=== PATIENT | female | born 1955 | race Caucasian/White ===

== ENCOUNTER → 2017-11-14 | Outpatient (CLI) | payer BC ==
[~2017-11-14] MED LIST: AMOX1TAB61 PO; CARB200T4 PO; DOCU-131 PO; LOVA20TA2 PO; OXYC-302 PO; RISP3TAB3 PO; RISP4TAB2 PO; VALS40TA2 PO; ZOLP10TA5 PO
[2017-11-14 12:43] LABS: ALANINE AMINOTRANSFERASE 37 U/L (12-78); ANION GAP 8 mmol/L (5-15); CALCIUM 8.6 mg/dL (8.5-10.1); CHLORIDE 103 mmol/L (98-107)
[2017-11-14 12:45] LABS: ALKALINE PHOSPHATASE 122 U/L (45-117); BILIRUBIN,TOTAL 0.4 mg/dL (0.2-1.0); CREATININE 0.71 mg/dL (0.55-1.02); TOTAL PROTEIN 7.7 g/dL (6.4-8.2)
== END ==
LOC: STAR 10:28
PROVIDERS: ATTEND Surgery
DX: Z01.818 Encounter for other preprocedural examination (principal)
CPT/HCPCS: 36415; 80053; 93005

== ENCOUNTER 2017-11-21 09:22 | Observation (INO) | payer BC ==
[~2017-11-21] VITALS: Ht 154.9 cm; Wt 99.0 kg
[~2017-11-21 09:22] MED LIST changes: +SUGAMMADEX 200 MG/2 ML IVPush ONE
[2017-11-21 09:53] VITALS: BP 147/96
[2017-11-21] MEDS ORDERED: LACTATED RINGERS 1,000 ML IV SCH (09:56)
[2017-11-21] MEDS ORDERED: FENTANYL PF 100 MCG/2ML ONE ×4 (13:21→16:28)
[2017-11-21] MEDS ORDERED: MIDAZOLAM 1 MG/ML, 2ML ONE (13:21)
[2017-11-21] MEDS ORDERED: BUPIVACAINE/PF 0.5% ONE ×2 (13:22→14:11)
[2017-11-21] MEDS ORDERED: BACITRACIN 50,000 UNIT ONE (13:22)
[2017-11-21] MEDS ORDERED: PROPOFOL 10 MG/ML, 20ML ONE (13:24)
[2017-11-21] MEDS ORDERED: ONDANSETRON 2MG/ML, 2ML ONE (13:24)
[2017-11-21] MEDS ORDERED: GLYCOPYRROLATE 0.2MG/1ML, 5ML ONE (13:24)
[2017-11-21] MEDS ORDERED: SUCCINYLCHOLINE 20 MG/ML, 10ML ONE (13:24)
[2017-11-21] MEDS ORDERED: CEFAZOLIN 1,000 MG ONE (13:24)
[2017-11-21] MEDS ORDERED: DEXAMETHASONE 4 MG/ML, 1ML ONE (13:24)
[2017-11-21] MEDS ORDERED: NEOSTIGMINE 1 MG/ML, 10ML ONE (13:24)
[2017-11-21] MEDS ORDERED: PHENYLEPHRINE 10 MG/ML ONE (13:36)
[2017-11-21] MEDS ORDERED: morphine SULFATE 10 MG/ML, 1ML IV PRN (14:00)
[2017-11-21] MEDS ORDERED: MIDAZOLAM 1 MG/ML, 2ML IV PRN (14:00)
[2017-11-21] MEDS ORDERED: ACETAMINOPHEN 325 MG TABLET PO PRN (14:00)
[2017-11-21] MEDS ORDERED: EPINEPHRINE 1 MG/ML, 1ML ONE (14:11)
[2017-11-21] MEDS ORDERED: BACITRACIN 50,000 UNIT IM ONE (14:50)
[2017-11-21] MEDS: FENTANYL PF 100 MCG/2ML IV PRN ×4 (15:55→16:55)
[2017-11-21] MEDS ORDERED: HYDROmorphone 1 MG/ML, 1ML ONE (16:10)
[2017-11-21] MEDS: HYDROmorphone 1 MG/ML, 1ML IV PRN ×2 (16:15→16:20)
[2017-11-21] MEDS ORDERED: ACETAMINOPHEN 650 MG/20.3 ML UDC ONE (16:28)
[2017-11-21] MEDS ORDERED: OXYcodone 5 MG/5 ML ORAL.SOL UDC ONE (16:28)
[2017-11-21] MEDS ORDERED: OXYcodone 5 MG/5 ML ORAL.SOL UDC PO PRN (17:00)
[2017-11-21] MEDS ORDERED: HYDROmorphone 2 MG/ML, 1ML IV PRN (18:30)
[2017-11-21] MEDS ORDERED: ZOLPIDEM 10MG TABLET PO PRN (18:30)
[2017-11-21] MEDS ORDERED: DIPHENHYDRAMINE 50 MG/ML, 1ML IVPush PRN (18:30)
[2017-11-21] MEDS ORDERED: RISPERIDONE 2 MG TABLET ONE (20:39)
[2017-11-21] MEDS ORDERED: RISPERIDONE 0.5 MG TABLET ONE (20:40)
[2017-11-21] MEDS: IBUPROFEN 600 MG TABLET PO SCH (20:43)
[2017-11-21] MEDS: CEFAZOLIN PMX 1GM/50ML 50 ML IV SCH (20:43)
[2017-11-21] MEDS: OXYcodone/APAP 5/325MG TABLET PO PRN (20:43)
[2017-11-21] MEDS: LOVASTATIN 20 MG TABLET PO SCH (20:44)
[2017-11-21] MEDS: VALSARTAN 80 MG TABLET PO SCH (20:44)
[2017-11-21] MEDS: DOCUSATE 100 MG CAPSULE PO SCH (20:44)
[2017-11-21] MEDS ORDERED: CEFAZOLIN PMX 1GM/50ML 50 ML IV SCH (20:50)
[2017-11-21] MEDS ORDERED: CEFAZOLIN PMX 2GM/50ML 50 ML IVPB SCH (20:50)
[2017-11-21] MEDS: RISPERIDONE 1 MG TABLET PO SCH (20:53)
[2017-11-21 21:06] VITALS: BP 104/74
[2017-11-21] MEDS: CARBAMAZEPINE 200 MG TABLET PO SCH (22:47)
[2017-11-21] MEDS: ONDANSETRON 2MG/ML, 2ML IVPush PRN (22:47)
[2017-11-21] MEDS: LACTATED RINGERS 1,000 ML IV SCH (22:47)
[2017-11-22 00:04] VITALS: BP 109/65
[2017-11-22] MEDS: OXYcodone/APAP 5/325MG TABLET PO PRN ×5 (00:50→20:15)
[2017-11-22 03:50] VITALS: BP 91/49
[2017-11-22] MEDS: IBUPROFEN 600 MG TABLET PO SCH ×3 (05:32→17:31)
[2017-11-22] MEDS: CEFAZOLIN PMX 1GM/50ML 50 ML IV SCH ×3 (05:32→22:04)
[2017-11-22] MEDS: ONDANSETRON 2MG/ML, 2ML IVPush PRN (08:05)
[2017-11-22 08:11] VITALS: BP 103/61
[2017-11-22] MEDS: CARBAMAZEPINE 200 MG TABLET PO SCH ×2 (09:00→22:04)
[2017-11-22] MEDS: LACTATED RINGERS 1,000 ML IV SCH ×2 (09:30→22:00)
[2017-11-22] MEDS: DOCUSATE 100 MG CAPSULE PO SCH ×2 (10:29→20:41)
[2017-11-22 13:59] VITALS: BP 130/64
[2017-11-22 19:09] VITALS: BP 94/53
[2017-11-22] MEDS: LOVASTATIN 20 MG TABLET PO SCH (20:15)
[2017-11-22] MEDS: RISPERIDONE 1 MG TABLET PO SCH (20:15)
[2017-11-22] MEDS: VALSARTAN 80 MG TABLET PO SCH ×2 (20:15→20:41)
[2017-11-22 20:40] VITALS: BP 111/63
[2017-11-23] MEDS: OXYcodone/APAP 5/325MG TABLET PO PRN ×3 (00:06→10:08)
[2017-11-23] MEDS: IBUPROFEN 600 MG TABLET PO SCH ×2 (00:06→05:40)
[2017-11-23 01:40] VITALS: BP 87/52
[2017-11-23 02:11] VITALS: BP 97/62
[2017-11-23] MEDS: CEFAZOLIN PMX 1GM/50ML 50 ML IV SCH (05:39)
[2017-11-23] MEDS: CARBAMAZEPINE 200 MG TABLET PO SCH (08:00)
[2017-11-23 08:05] VITALS: BP 96/60
[2017-11-23] MEDS: DOCUSATE 100 MG CAPSULE PO SCH (10:08)
== END 2017-11-23 12:01 | disposition home or self-care (01) ==
LOC: ORIP 09:22 → INTOOBSV 09:22 → EDSTATUS 13:30 → 4NOR 17:20
PROVIDERS: ADMIT Surgery; ATTEND Surgery
DX: C50.911 Malignant neoplasm of unspecified site of right female breast (principal); N64.89 Other specified disorders of breast
CPT/HCPCS: 19307; 19357; 38792; 88305; 88307; 88333; 96365; 96375; 96376; A9541; C1729; C1762; G0378; J0171; J0330; J0690; J1100; J1170; J2250; J2370; J2405; J2704; J2710; J3010; J3490; J7120

== ENCOUNTER → 2017-12-09 | Outpatient (CLI) | payer BC ==
[~2017-12-09] MED LIST changes: -SUGAMMADEX 200 MG/2 ML IVPush ONE
== END | disposition home or self-care (01) ==
LOC: RAD 15:30
PROVIDERS: ATTEND Plastic Surgery
DX: M79.604 Pain in right leg (principal); M79.605 Pain in left leg; R60.0 Localized edema
CPT/HCPCS: 93970

== ENCOUNTER 2018-07-31 09:15 | Observation (INO) | payer BC ==
[2018-07-29 10:42] LABS: ALBUMIN 3.6 g/dL (3.4-5.0); ANION GAP 6 mmol/L (5-15); CALCIUM 8.6 mg/dL (8.5-10.1); CHLORIDE 102 mmol/L (98-107)
[2018-07-29 10:46] LABS: ALANINE AMINOTRANSFERASE 34 U/L (12-78); ALKALINE PHOSPHATASE 140 U/L (45-117); BILIRUBIN,TOTAL 0.4 mg/dL (0.2-1.0); CREATININE 0.67 mg/dL (0.55-1.02); TOTAL PROTEIN 7.5 g/dL (6.4-8.2)
[~2018-07-31] VITALS: Ht 154.9 cm; Wt 101.6 kg
[~2018-07-31 09:15] MED LIST changes: +AMOX1TAB64 PO; +ASCO100019 PO; +CALC-332 PO; +DEXT350P PO; +HYDR25TA11 PO; +IODI1GRA PO; +LACT1CAP37 PO; +LOSA25TA6 PO; +MAGN500C9 PO; +METH750T2 PO; +MULT1TAB60 PO; +NIAC50TA4 PO; +OXYC1TAB7 PO; +SENN1TAB67 PO; +UBID100C24 PO
[2018-07-31 10:50] VITALS: BP 139/89
[2018-07-31] MEDS ORDERED: LACTATED RINGERS 1,000 ML IV SCH (10:54)
[2018-07-31] MEDS ORDERED: ACETAMINOPHEN 500 MG TABLET PO ONE (11:00)
[2018-07-31] MEDS ORDERED: GABAPENTIN 300 MG CAPSULE PO ONE (11:00)
[2018-07-31] MEDS ORDERED: SODIUM BICARBONATE 1 MEQ/ML, 50ML VIAL ONE (11:50)
[2018-07-31] MEDS ORDERED: BUPIVACAINE/PF 0.5% ONE (11:50)
[2018-07-31] MEDS ORDERED: EPINEPHRINE 1 MG/ML, 1ML ONE (11:50)
[2018-07-31] MEDS ORDERED: LIDOCAINE/PF 1%, 30ML ONE (11:50)
[2018-07-31] MEDS ORDERED: BACITRACIN 50,000 UNIT ONE (11:51)
[2018-07-31] MEDS ORDERED: MIDAZOLAM 1 MG/ML, 2ML ONE (11:56)
[2018-07-31] MEDS ORDERED: FENTANYL PF 250 MCG/5ML ONE (11:56)
[2018-07-31] MEDS ORDERED: GLYCOPYRROLATE 0.2MG/1ML, 5ML ONE (11:58)
[2018-07-31] MEDS ORDERED: ONDANSETRON 2MG/ML, 2ML ONE (11:58)
[2018-07-31] MEDS ORDERED: PROPOFOL 10 MG/ML, 20ML ONE (11:58)
[2018-07-31] MEDS ORDERED: ROCURONIUM 10MG/ML,5ML ONE (11:58)
[2018-07-31] MEDS ORDERED: DEXAMETHASONE 4 MG/ML, 1ML ONE (11:58)
[2018-07-31] MEDS ORDERED: CEFAZOLIN 1,000 MG ONE (11:58)
[2018-07-31] MEDS ORDERED: NEOSTIGMINE 1 MG/ML, 10ML ONE (11:58)
[2018-07-31] MEDS ORDERED: METHYLENE BLUE 10 MG/ML 10ML ONE (12:26)
[2018-07-31] MEDS ORDERED: MORPHINE SULFATE 4 MG/ML, 1ML IVPush PRN (12:30)
[2018-07-31] MEDS ORDERED: LABETALOL 5MG/ML, 20ML IV PRN (12:30)
[2018-07-31] MEDS ORDERED: hydrALAzine 20 MG/ML, 1ML IV PRN (12:30)
[2018-07-31] MEDS ORDERED: PROMETHAZINE 25 MG/ML, 1ML IV PRN (12:30)
[2018-07-31] MEDS ORDERED: MEPERIDINE/PF 25MG/0.5ML IVPush PRN (12:30)
[2018-07-31] MEDS ORDERED: OXYcodone 5 MG/5 ML ORAL.SOL UDC PO PRN (12:30)
[2018-07-31] MEDS ORDERED: ONDANSETRON 2MG/ML, 2ML IV PRN (12:30)
[2018-07-31] MEDS ORDERED: PROMETHAZINE 25 MG SUPP PR PRN (12:30)
[2018-07-31] MEDS ORDERED: PROMETHAZINE 12.5 MG SUPP PR PRN (12:30)
[2018-07-31] MEDS ORDERED: ONDANSETRON ODT 8 MG PO PRN (12:30)
[2018-07-31] MEDS ORDERED: PROMETHAZINE 25 MG/ML, 1ML IM PRN ×2 (12:30)
[2018-07-31] MEDS ORDERED: CIPROFLOXACIN/PMX 400MG/200ML 200 ML ONE (12:42)
[2018-07-31] MEDS ORDERED: FENTANYL PF 100 MCG/2ML ONE (15:36)
[2018-07-31] MEDS ORDERED: HYDROmorphone 2 MG/ML, 1ML ONE (15:36)
[2018-07-31] MEDS ORDERED: OXYcodone 5 MG/5 ML ORAL.SOL UDC ONE (15:36)
[2018-07-31] MEDS: HYDROmorphone 1 MG/ML, 1ML IV PRN ×3 (15:41→16:35)
[2018-07-31] MEDS: FENTANYL PF 100 MCG/2ML IV PRN ×2 (15:56→16:29)
[2018-07-31] MEDS: MORPHINE SULFATE 4 MG/ML, 1ML IVPush PRN (18:28)
[2018-07-31] MEDS: OXYcodone/APAP 5/325MG TABLET PO PRN (19:19)
[2018-07-31 21:46] VITALS: BP 109/65
[2018-07-31] MEDS: ZOLPIDEM 10MG TABLET PO SCH (22:00)
[2018-07-31] MEDS: ONDANSETRON 2MG/ML, 2ML IVPush PRN (22:09)
[2018-07-31] MEDS: LACTATED RINGERS 1,000 ML IV SCH (23:49)
[2018-07-31] MEDS: PROMETHAZINE 25 MG/ML, 1ML IM PRN (23:49)
[2018-07-31 23:53] VITALS: BP 101/60
[2018-08-01] MEDS: RISPERIDONE 2 MG TABLET PO SCH ×2 (00:14→22:17)
[2018-08-01] MEDS: CARBAMAZEPINE 200 MG TABLET PO SCH ×3 (00:14→22:17)
[2018-08-01] MEDS: DOXYCYCLINE 100MG TABLET PO SCH ×3 (00:15→22:17)
[2018-08-01] MEDS: CIPROFLOXACIN 500 MG TABLET PO SCH ×3 (00:15→22:17)
[2018-08-01] MEDS: LOVASTATIN 20 MG TABLET PO SCH ×2 (00:15→22:17)
[2018-08-01] MEDS: MORPHINE SULFATE 4 MG/ML, 1ML IVPush PRN ×3 (00:15→10:26)
[2018-08-01] MEDS: OXYcodone/APAP 5/325MG TABLET PO PRN ×5 (01:52→22:17)
[2018-08-01 04:03] VITALS: BP 104/61
[2018-08-01 06:58] VITALS: BP 109/64
[2018-08-01] MEDS: LOSARTAN 25MG TABLET PO SCH (09:00)
[2018-08-01] MEDS ORDERED: LOSARTAN 25MG TABLET PO SCH (09:00)
[2018-08-01] MEDS: PROMETHAZINE 25 MG/ML, 1ML IM PRN (10:25)
[2018-08-01] MEDS: LACTATED RINGERS 1,000 ML IV SCH (12:51)
[2018-08-01 13:10] VITALS: BP 107/72
[2018-08-01] MEDS: ZOLPIDEM 10MG TABLET PO SCH (21:00)
[2018-08-01 21:27] VITALS: BP 128/72
[2018-08-01] MEDS: ONDANSETRON 2MG/ML, 2ML IVPush PRN (22:14)
[2018-08-02 00:32] VITALS: BP 109/73
[2018-08-02] MEDS: LACTATED RINGERS 1,000 ML IV SCH (02:20)
[2018-08-02] MEDS: OXYcodone/APAP 5/325MG TABLET PO PRN ×2 (04:36→10:17)
[2018-08-02 07:55] VITALS: BP 120/80
[2018-08-02] MEDS: CARBAMAZEPINE 200 MG TABLET PO SCH (10:17)
[2018-08-02] MEDS: CIPROFLOXACIN 500 MG TABLET PO SCH (10:17)
[2018-08-02] MEDS: DOXYCYCLINE 100MG TABLET PO SCH (10:17)
[2018-08-02] MEDS: LOSARTAN 25MG TABLET PO SCH (10:18)
[2018-08-02] MEDS ORDERED: OXYC-302 PO (12:24)
[2018-08-02] MEDS ORDERED: CIPR500T87 PO (12:33)
== END 2018-08-02 14:02 | disposition home or self-care (01) ==
LOC: INTOOBSV 10:24 → ORIP 10:24 → EDSTATUS 12:00 → 4NOR 17:01
PROVIDERS: ADMIT Plastic Surgery; ATTEND Plastic Surgery
DX: C50.911 Malignant neoplasm of unspecified site of right female breast (principal); C50.912 Malignant neoplasm of unspecified site of left female breast; I10 Essential (primary) hypertension; Z90.13 Acquired absence of bilateral breasts and nipples
CPT/HCPCS: 11970; 19340; 36415; 80053; 88307; 93005; 96372; 96374; 96375; 96376; C1729; C1789; G0378; J0690; J0744; J1100; J1170; J2250; J2405; J2550; J2704; J2710; J3010; J3490; J7120; Q9968; J0171